=== PATIENT | female | born 2000 ===

== ENCOUNTER 2019-11-02 21:14 | Inpatient (IN) | payer SELFPAY ==
[2019-11-02 21:16] VITALS: BP 155/94; PULSE 72; RESP 16; TEMP 36.7; O2SAT 100; BMI 47.5
--- NOTE | 2019-11-02 21:22 | ED_ITS ---
HPI - Psych General: Stated Complaint: direct admit/ si Time Seen by Provider: 11/02/19 21:16 Source: patient Mode of arrival: ambulatory Limitations: no limitations History of Present Illness: HPI Narrative: 19-year-old female who is here from [place] after an attempt to kill herself yesterday by taking oxycodone. Patient states she is also drinking as well. Patient transferred here as a direct admit to the psych unit. Patient stopped the ER to be cleared for coronavirus. Patient is voluntary and states she wants to get help. She denies any cough or fever. Associated symptoms: Reports depression and suicidal ideation Review of Systems Const: Denies: fever(s), chills, body aches or change in appetite Eyes: Denies: blurry vision or eye discomfort ENMT: Denies: throat pain or dental pain Card: Denies: chest pain Resp: Denies: dyspnea GI: Denies: abdominal pain, nausea, vomiting or diarrhea : Denies: dysuria Musc: Denies: neck pain or back pain Skin/Breast: Denies: rash Neuro: Denies: headache(s) Psych: Reports: depression and suicidal ideation Dimitrios/Lymph: Denies: easy bruising All/Imm: Denies: urticaria Physical Exam Const: COMMON NORMALS: no acute distress, patient oriented x3 and healthy appearing HENMT: COMMON NORMALS: normocephalic and atraumatic HEAD & SCALP: normocephalic and atraumatic Eye: COMMON NORMALS: Equal, round and reactive pupils present and EOMs intact bilaterally PUPIL: Yes Equal, round and reactive pupils present Neck/C-Spine: COMMON NORMALS: full ROM and supple Chest: COMMONS NORMALS: normal inspection of the chest and normal palpation of entire chest wall Resp: COMMON NORMALS: normal respiratory effort, No retractions, No use of accessory muscles and clear to auscultation bilaterally AUSCULTATION: clear to auscultation bilaterally Cardio: COMMON NORMALS: regular rate, regular rhythm and No murmurs present (Cardio) RATE: regular rate RHYTHM: regular rhythm GI: COMMON NORMALS: Normal to inspection, nondistended, normoactive bowel sounds present, Soft to palpation, non-tender and no masses PALPATION: Yes Soft to palpation Extremity: COMMON NORMALS: normal to inspection and full ROM Neuro: COMMON NORMALS: patient oriented x3, moves all extremities and no focal motor deficits Psych: COMMON NORMALS: mental status grossly normal, Normal thought process present and cooperative MOOD & AFFECT: Yes depressed mood THOUGHT PROCESS: Normal thought process present THOUGHT CONTENT: Yes Suicidality present Skin: COMMON NORMALS: no rashes or lesions noted and no wounds GENERAL SKIN EXAM: no rashes or lesions noted MDM - Psych MDM Narrative: Medical decision making narrative: Patient presents for suicidal ideations. Patient is medically cleared and has no coronavirus symptoms. Will admit to the psych unit. Discharge Plan Discharge Patient Disposition: Admitted As Inpatient Clinical Impression: Suicidal ideation Condition: Stable Coding Level of Care Code ED Vermin Exterminator for Triston Jolly
[2019-11-02 21:50] VITALS: BP 123/87; PULSE 76; RESP 16; O2SAT 98
[2019-11-02 22:17] VITALS: BP 137/79; PULSE 99; RESP 16; TEMP 37.1; O2SAT 98
[2019-11-02 23:26] VITALS: BP 137/76; PULSE 96; RESP 15; TEMP 36.9; O2SAT 99
[2019-11-02] MEDS: nicotine 2 mg Gum BUCCAL (23:33)
[2019-11-02] MEDS: hyDROXYzine 25 mg Capsule 50 MG PO (23:33)
--- NOTE | 2019-11-02 23:34 | PC.NURSE ---
Tattos on both hands and left shoulder. Track torres left forearm. Scars on left forearm. Cigarette anne left lower leg and right upper leg. Right ankle tattoo. Reported scar to scalp, right side of head, 3 inches above hairline.
[2019-11-03 06:00] VITALS: BP 112/75; PULSE 68; RESP 19; TEMP 36; O2SAT 100
[2019-11-03] MEDS: risperiDONE 1 mg Tablet PO (07:59)
[2019-11-03] MEDS: folic acid 1 mg Tablet PO (07:59)
[2019-11-03] MEDS: multivitamin therapeutic Tablet 1 TAB PO (07:59)
[2019-11-03] MEDS: thiamine 100 mg Tablet PO (07:59)
[2019-11-03] MEDS: nicotine 2 mg Gum BUCCAL ×2 (07:59→15:05)
--- NOTE | 2019-11-03 11:15 | P.HP_ITS ---
Providers/Chief Complaint Admitting Physician: Silvano Avery MD Chief Complaint: direct admit/ si HPI NPU History of Present Illness Chief complaint: I did not get my meds for 2 days and went into a manic dep ression mode. I was just trying to get really f#cked up. History of present illness:Hitesh Carlton is a 19-year-old woman who was taken to the emergency room by her friend after she was observed allegedly ingesting 3 bottles of pills. This occurred early in the morning. The patient was inebriated. She states that it was an impulsive act brought on because she had missed her medications for 2 days and it was for that reason she became depressed. She currently denies suicidal or homicidal ideation. She reports that earlier in the evening and throughout the prior day, she was free of suic idal ideation. In fact she had been having a pretty good day until she began to drinking alcohol. Her blood alcohol level upon arriving at the emergency room was 118. Her urine drug screen was positive only for marijuana. She currently reports good hedonic capacity. She is looking forward to the future. She enjoys playing video games and hanging out with friends. She does report feeling hopeless and despondent at times. This is apparently amplified by her use of alcohol. She says that she uses alcohol on a regular basis but refuses to give an estimate. Her hepatic enzyme levels are completely within normal limits. Mental health history:She is currently under the care of Dr. Garcia in the [facility] system. He did she last saw Dr. Garcia within the past 3 weeks. She is currently being maintained on Risperdal, Seroquel, and I do not know what else. She does not know what her diagnosis is but is able to recite a litany of past diagnoses including bipolar disorder, schizophrenia, PTSD, and borderline personality disorder. She has a history of 2 prior psychiatric hospitalizations. The occur first occurred at age 14 when she was hospitalized on an overdose of methamphetamine. She had a history of IV methamphetamine use for many years. It was 1 of the primary reasons she was eventually kicked out of school and kicked out of the family home. In April 2019, she was again hospitalized on a suicide attempt. Her boyfriend broke up with her and that she took 20 of her cousins gabapentin. She was not in mental health care at that time and had no medications of her own. She is currently being treated in the [facility] system. She claims to have a counselor/therapist but does not know the name. Social history: The patient is the sole source of her social history. She says that she grew up in [facility]. She then has lived in [place], [place], [facility] [place], and now living in [place]. In spite of that, she says she has lived in [facility] for 12 years. She says her parents kicked her out of the home at 14 because of her drug use and juvenile delinquency. In spite of that, she is currently living with her parents. She was kicked out of the [employer] school system in 11th grade. She was at placed in the alternative school program after she kept getting in fights at school. She was eventually kicked out of the alternative school program for noncompliance and rules violations. Legal history: Patient claims that 1 of her problems is that she has multiple felony charges and pending incarcerations. However review of the public record in [place] reveals that her only she charges with in the past 2 years are tampering with a motor vehicle, interfering with an arrest, and theft. She says that all of her felony charges have been in the state of [place]. Meds NPU Allergies Allergy/AdvReac Type Severity Reaction Status Date / Time No Known Allergies Allergy Verified 11/02/19 21:24 PFS NPU PFSH: Social History (Updated 11/02/19 @ 21:32 by Cisco Maxwell RN) Smoking and tobacco status: current every day smoker cigarettes Number of cigarettes per day: 11-20 Alcohol intake: current Alcohol intake frequency: 0-2 Drinks per Day Alcohol type: hard liquor Mental Status Exam MSE Comments: Mental Status Exam: The patient is alert interpersonally engaged female appearing approximately her stated age. She is obese but ambulatory. Her hair appears to have been dyed at 1 time but now has grown out into 2 different colors. She has a piercing on her right side of her mouth. She is cooperative. But she is believed to be a reliable informant to the extent that she wants to be. Information she provides is generally consistent with that in her chart. However, she becomes quite vague around information on subjects about which she does not want to discuss. She is very calculated in the information she provides and indicating both effective problem solving, analytical skills, if not good judgment. Appearance: hygiene is good; no gross neurological deficits., gait is unremarkable; AIMS=0 Speech: Speech is of normal rate and rhythm and easily understood. Thought processes: Thought processes are abstract. Judgment is adequate for safety. Associations: intact Psychotic processes: She is quite guarded around the topics that she does not want to discuss. There is no indication of paranoia. There is no attention to the internal stimuli. Auditory and visual hallucinations are denied. Judgment: Insight is poor. Problem solving skills are adequate for safety. Orientation: The patient is oriented to person, place time and situation. Memory: no deficits noted in immediate, intermediate, or remote spheres. Attention: The patient is alert and interpersonally engaged. Language: Verbalizations are coherent. Fund of knowledge: Fund of knowledge is adequate. Affect/Mood: Affect is consistent with a euthymic mood. pt denies suicidal ideation Affective range appropriate. Psychosis: perception unimpaired except through cognitive distortion; reality testing intact. Diagnoses: Suicide attempt?resolved; borderline personality disorder; alcohol abuse Assessment: The patient is guarding around the stressors under which she is laboring right now prevent a full understanding of the events leading to her impulsive self-destructive act. However she does not meet criteria for clinical depression. She was not having thoughts of suicide prior to her becoming inebriated and self discontinuing her medication. She does not appear to be an imminent risk to self or others at this time. She was advised by this physician to remain in the hospital and restart her medications. She stated her intent to leave AGAINST MEDICAL ADVICE at the first opportunity. Treatment plan: Due to the psychiatric conditions and treatment listed in the Assessment and Plan - the patient requires continued hospitalization. Will provide a safe and therapeutic environment for patient.. Will continue inpatient treatment to allow for medication adjustment and monitoring. Will continue q15 min safety checks. Patient will be admitted to the adult psychiatric unit and entered into the full array of individual and group therapies as part of that unit protocol. She will be provided 24-hour access to trained psychiatric nursing care and monitoring. Once we are able to confirm her medications and dosages, they will be re- initiated. Monitor patient's mood, sleep, appetite, and behavior closely. Encourage patient to participate in individual and group therapeutic sessions on the morrow. Estimated length of stay 5 days The expected benefits and potential side effects of patient's psychiatric medications were discussed with the patient. The patient understands and consents to treatment.CRITERIA FOR DISCHARGE: stable on medications and no longer an imminent risk Vitals/I&O/Wt Last Vital Signs Temp 96.8 F L 11/03/19 06:00 Pulse 68 11/03/19 06:00 Resp 19 H 11/03/19 06:00 BP 112/75 11/03/19 06:00 Pulse Ox 100 11/03/19 06:00 Weight last 48 hrs Weight 117.934 kg A&P Additional A&P Information Diagnoses: Suicide attempt?resolved; borderline personality disorder; alcohol abuse Assessment: The patient is guarding around the stressors under which she is laboring right now prevent a full understanding of the events leading to her impulsive self-destructive act. However she does not meet criteria for clinical depression. She was not having thoughts of suicide prior to her becoming inebriated and self discontinuing her medication. She does not appear to be an imminent risk to self or others at this time. She was advised by this physician to remain in the hospital and restart her medications. She stated her intent to leave AGAINST MEDICAL ADVICE at the first opportunity. Patient did not meet criteria for imminent risk to self or others. She was a voluntary patient and as such, decided to sign out of the hospital in spite of physician advisement to remain fro further medication assessment. Involuntary Hold Information 96 Hour Hold: 96 Hour Involuntary Admission: No Attestations NPU Medical Necessity Statement*: Patient is disuchaged AMA status Coding Level of Care Code Acute Rn Observation for Triston Jolly
[2019-11-03 13:48] VITALS: BP 96/61; PULSE 68; RESP 18; TEMP 36.6; O2SAT 98
[2019-11-03 15:31] VITALS: BP 96/61; PULSE 68; RESP 18; TEMP 36.6; O2SAT 98
--- NOTE | 2019-11-13 10:16 | P.SS_ITS ---
Short Stay Summary Providers Date of Admit/Discharge: 11/13/19 Attending Provider: Silvano Avery MD Chief Complaint: direct admit/ si HPI History of Present Illness Chief complaint: I did not get my meds for 2 days and went into a manic depression mode. I was just trying to get really f#cked up. History of present illness:Hitesh Carlton is a 19-year-old woman who was taken to the emergency room by her friend after she was observed allegedly ingesting 3 bottles of pills. This occurred early in the morning. The patient was inebriated. She states that it was an impulsive act brought on because she had missed her medications for 2 days and it was for that reason she became depressed. She currently denies suicidal or homicidal ideation. She reports that earlier in the evening and throughout the prior day, she was free of suicidal ideation. In fact she had been having a pretty good day until she began to drinking alcohol. Her blood alcohol level upon arriving at the emergency room was 118. Her urine drug screen was positive only for marijuana. She currently reports good hedonic capacity. She is looking forward to the future. She enjoys playing video games and hanging out with friends. She does report feeling hopeless and despondent at times. This is apparently amplified by her use of alcohol. She says that she uses alcohol on a regular basis but refuses to give an estimate. Her hepatic enzyme levels are completely within normal limits. Mental health history:She is currently under the care of Dr. Garcia in the [facility] system. He did she last saw Dr. Garcia within the past 3 weeks. She is currently being maintained on Risperdal, Seroquel, and I do not know what else. She does not know what her diagnosis is but is able to recite a litany of past diagnoses including bipolar disorder, schizophrenia, PTSD, and borderline personality disorder. She has a history of 2 prior psychiatric hospitalizations. The occur first occurred at age 14 when she was hospitalized on an overdose of methamphetamine. She had a history of IV methamphetamine use for many years. It was 1 of the primary reasons she was eventually kicked out of school and kicked out of the family home. In April 2019, she was again hospitalized on a suicide attempt. Her boyfriend broke up with her and that she took 20 of her cousins gabapentin. She was not in mental health care at that time and had no medications of her own. She is currently being treated in the [facility] system. She claims to have a counselor/therapist but does not know the name. Social history: The patient is the sole source of her social history. She says that she grew up in [facility]. She then has lived in [place], [place], [facility], and now living in [place]. In spite of that, she says she has lived in [facility] for 12 years. She says her parents kicked her out of the home at 14 because of her drug use and juvenile delinquency. In spite of that, she is currently living with her parents. She was kicked out of the [employer] school system in 11th grade. She was at placed in the alternative school program after she kept getting in fights at school. She was eventually kicked out of the alternative school program for noncompliance and rules violations. Legal history: Patient claims that 1 of her problems is that she has multiple felony charges and pending incarcerations. However review of the public record in [place] reveals that her only she charges with in the past 2 years are tampering with a motor vehicle, interfering with an arrest, and theft. She says that all of her felony charges have been in the state of [place]. Meds NPU Allergies Allergy/AdvReac Type Severity Reaction Status Date / Time No Known Allergies Allergy Verified 11/02/19 21:24 PFS NPU PFSH: Social History (Updated 11/02/19 @ 21:32 by Cisco Maxwell RN) Smoking and tobacco status: current every day smoker cigarettes Number of cigarettes per day: 11-20 Alcohol intake: current Alcohol intake frequency: 0-2 Drinks per Day Alcohol type: hard liquor Mental Status Exam MSE Comments: Mental Status Exam: The patient is alert interpersonally engaged female appearing approximately her stated age. She is obese but ambulatory. Her hair appears to have been dyed at 1 time but now has grown out into 2 different colors. She has a piercing on her right side of her mouth. She is cooperative. But she is believed to be a reliable informant to the extent that she wants to be. Information she provides is generally consistent with that in her chart. However, she becomes quite vague around information on subjects about which she does not want to discuss. She is very calculated in the information she provides and indicating both effective problem solving, analytical skills, if not good judgment. Appearance: hygiene is good; no gross neurological deficits., gait is unremarkable; AIMS=0 Speech: Speech is of normal rate and rhythm and easily understood. Thought processes: Thought processes are abstract. Judgment is adequate for safety. Associations: intact Psychotic processes: She is quite guarded around the topics that she does not want to discuss. There is no indication of paranoia. There is no attention to the internal stimuli. Auditory and visual hallucinations are denied. Judgment: Insight is poor. Problem solving skills are adequate for safety. Orientation: The patient is oriented to person, place time and situation. Memory: no deficits noted in immediate, intermediate, or remote spheres. Attention: The patient is alert and interpersonally engaged. Language: Verbalizations are coherent. Fund of knowledge: Fund of knowledge is adequate. Affect/Mood: Affect is consistent with a euthymic mood. pt denies suicidal ideation Affective range appropriate. Psychosis: perception unimpaired except through cognitive distortion; reality testing intact. Diagnoses: Suicide attempt?resolved; borderline personality disorder; alcohol abuse Assessment: The patient is guarding around the stressors under which she is laboring right now prevent a full understanding of the events leading to her impulsive self-destructive act. However she does not meet criteria for clinical depression. She was not having thoughts of suicide prior to her becoming inebriated and self discontinuing her medication. She does not appear to be an imminent risk to self or others at this time. She was advised by this physician to remain in the hospital and restart her medications. She stated her intent to leave AGAINST MEDICAL ADVICE at the first opportunity. Treatment plan: Due to the psychiatric conditions and treatment listed in the Assessment and Plan - the patient requires continued hospitalization. Will provide a safe and therapeutic environment for patient.. Will continue inpatient treatment to allow for medication adjustment and monitoring. Will continue q15 min safety checks. Patient will be admitted to the adult psychiatric unit and entered into the full array of individual and group therapies as part of that unit protocol. She will be provided 24-hour access to trained psychiatric nursing care and monitoring. Once we are able to confirm her medications and dosages, they will be re- initiated. Monitor patient's mood, sleep, appetite, and behavior closely. Encourage patient to participate in individual and group therapeutic sessions on the morrow. Estimated length of stay 5 days The expected benefits and potential side effects of patient's psychiatric medic ations were discussed with the patient. The patient understands and consents to treatment.CRITERIA FOR DISCHARGE: stable on medications and no longer an imminent risk Vitals/I&O/Wt Last Vital Signs Temp 96.8 F L 11/03/19 06:00 Pulse 68 11/03/19 06:00 Resp 19 H 11/03/19 06:00 BP 112/75 11/03/19 06:00 Pulse Ox 100 11/03/19 06:00 Weight last 48 hrs Weight 117.934 kg A&P Additional A&P Information Diagnoses: Suicide attempt?resolved; borderline personality disorder; alcohol abuse Assessment: The patient is guarding around the stressors under which she is laboring right now prevent a full understanding of the events leading to her impulsive self-destructive act. However she does not meet criteria for clinical depression. She was not having thoughts of suicide prior to her becoming inebriated and self discontinuing her medication. She does not appear to be an imminent risk to self or others at this time. She was advised by this physician to remain in the hospital and restart her medications. She stated her intent to leave AGAINST MEDICAL ADVICE at the first opportunity. Patient did not meet criteria for imminent risk to self or others. She was a voluntary patient and as such, decided to sign out of the hospital in spite of physician advisement to remain fro further medication assessment. Home Meds/Allergies Home Medications and Allergies Allergies Allergy/AdvReac Type Severity Reaction Status Date / Time No Known Allergies Allergy Verified 11/02/19 21:24 PFSH Acute PFSH: Social History (Updated 11/02/19 @ 21:32 by Cisco Maxwell RN) Smoking and tobacco status: current every day smoker cigarettes Number of cigarettes per day: 11-20 Alcohol intake: current Alcohol intake frequency: 0-2 Drinks per Day Alcohol type: hard liquor Vitals/I&O/Wt Last Vital Signs Temp 97.8 F 11/03/19 15:31 Pulse 68 11/03/19 15:31 Resp 18 11/03/19 15:31 BP 96/61 11/03/19 15:31 Pulse Ox 98 11/03/19 15:31 Discharge Plan Discharge Patient Disposition: Left Against Medical Advice Condition: Stable Discharge Orders: Discharge Order (Routine); Ordered 11/03/19 Ordered By: Kit White Referrals: [facility] in [place], [place] [Other] (you have an appointment with your therapist on 11-08-19 at 3:00 p.m. with Maryjane Arriaga you have an appointment with your nurse and psychiatrist 11-21-19 at 12:30 p.m. with Yanelis Villafana both these appointments will most likely be by phone. do call and confirm. do call for your correctional counselor/case manager too when you are discharged from the hospital ) Discharge Date/Time: 11/03/19 15:47 Attestations Medical Necessity Statement*: pt left ama. Time Spent in Patient Care*: less than 30 min Quality Metrics Clinical Quality Measures: During this hospital stay, did patient experience: None Coding Level of Care Code Acute Web Page Developer for Triston Jolly
== END 2019-11-03 15:47 | disposition left against medical advice (07) | DRG 918 ==
LOC: ER 21:53 → NP 21:56
PROVIDERS: Admitting Provider Psychiatry & Neurology Psychiatry; Visit Provider Psychiatry & Neurology Psychiatry
DX: T40.2X2A Poisoning by other opioids, intentional self-harm, initial encounter (principal); Z68.42 Body mass index [BMI] 45.0-49.9, adult; Y92.009 Unspecified place in unspecified non-institutional (private) residence as the place of occurrence of the external cause; Y90.5 Blood alcohol level of 100-119 mg/100 ml; F10.229 Alcohol dependence with intoxication, unspecified; F12.10 Cannabis abuse, uncomplicated; Z53.29 Procedure and treatment not carried out because of patient's decision for other reasons; Z91.5 Personal history of self-harm; F60.3 Borderline personality disorder; F17.210 Nicotine dependence, cigarettes, uncomplicated; E66.9 Obesity, unspecified; Z20.828 Contact with and (suspected) exposure to other viral communicable diseases
CPT/HCPCS: 12345; 99284